=== PATIENT | male | born 1940 | race Two or more races ===

== ENCOUNTER 2019-01-31 03:07 | Emergency (ER) | payer MEDICARE ==
[~2019-01-31] VITALS: Ht 175.3 cm; Wt 55.8 kg
[2019-01-31] MEDS ORDERED: LET SOLN TOPICAL 8 ML UDC TP ONE ×2 (03:30→03:41)
--- NOTE | 2019-01-31 03:30 | NUR ---
biba for evaluation of facial edema and laceration on the nose bridge s/p fall. pt also w/ c/o neck pain. denied loosing conciousness. still w/ mod bleeding from the laceration. also noted w/ a buldging area on the forehead. vss. will cont to monitor,
--- NOTE | 2019-01-31 03:33 | NUR ---
slabber at the bed side
[2019-01-31 03:46] LABS: BASOPHILS % (AUTO) 0.3 % (0.0-2.0); EOSINOPHILS % (AUTO) 2.4 % (0.0-6.0); HEMATOCRIT 42 % (39-51); HEMOGLOBIN 14.1 g/dL (13.5-17.5); LYMPHOCYTES # (AUTO) 1.5 /CMM (0.8-4.8); LYMPHOCYTES % (AUTO) 24.1 % (20.0-44.0); MEAN CORPUSCULAR HGB CONC 34 g/dl (31.0-36.0); MEAN CORPUSCULAR VOLUME 94 fL (80-96); MONOCYTES # (AUTO) 0.5 /CMM (0.1-1.30); MONOCYTES % (AUTO) 8.4 % (2.0-12.0); NEUTROPHILS % (AUTO) 64.8 % (43.0-81.0); PLATELET COUNT (AUTO) 154 /CMM (150-450); RED BLOOD CELL COUNT(AUTO) 4.43 MIL/uL (4.5-6.0); WHITE BLOOD COUNT (AUTO) 6.2 K/uL (4.3-11.0)
[2019-01-31 03:55] LABS: CALCIUM, SERUM 9.5 mg/dL (8.5-10.1); CARBON DIOXIDE 26 mmol/L (21-32); CHLORIDE 102 mmol/L (98-107); CREATININE 1.5 mg/dL (0.6-1.3); GLUCOSE 125 mg/dL (74-106); POTASSIUM 4.3 mmol/L (3.5-5.1); SODIUM SERUM 138 mmol/L (136-145); UREA NITROGEN, BLOOD 28 mg/dL (7-18)
--- NOTE | 2019-01-31 04:55 | NUR ---
nose bridge skin tear was cleaned w/ NS. good skin care provided and steri- strips applied.
--- NOTE | 2019-01-31 05:03 | NUR ---
CALLED [facility] FOR TRANSPORTATION. ETA 0630. TRIP NUMBER [id number] Addendum: 01/31/19 at 0507 by JA ETA 0745. ATTEMPTED TO CALL [facility] FOR TRANSPORTATION. UNKNOWN ETA UNTIL AFTER 06
--- NOTE | 2019-01-31 05:41 | NUR ---
pt was assisted w/ the urinal. remained stable w/ no s/s of distress. no c/o pain or discomfort.
--- NOTE | 2019-01-31 06:19 | NUR ---
SPOKE WITH CHARGE NURSE OF [facility] AND INFORMED OF PT RETURNING BACK TO FACILITY
--- NOTE | 2019-01-31 07:00 | NUR ---
called [facility] to follow up w/ the transportation. ETA:[id number]
--- NOTE | 2019-01-31 08:00 | NUR ---
REPORT GIVEN TO EMT FOR PT TRANSFER.
[2019-01-31 08:41] VITALS: BP 149/95
== END 2019-01-31 08:45 ==
LOC: ER 03:07
DX: S02.2XXA Fracture of nasal bones, initial encounter for closed fracture (principal); S00.83XA Contusion of other part of head, initial encounter; M54.2 Cervicalgia; I10 Essential (primary) hypertension; W01.198A Fall on same level from slipping, tripping and stumbling with subsequent striking against other object, initial encounter; Y93.89 Activity, other specified; Y92.89 Other specified places as the place of occurrence of the external cause; Y99.8 Other external cause status
CPT/HCPCS: 36415; 70450; 70486; 72125; 80048; 85025; 99284; A6403 ×2

== ENCOUNTER 2021-03-22 21:04 | Inpatient (IN) | payer MEDICARE, OTHER ==
[~2021-03-22] VITALS: Ht 167.6 cm; Wt 41.7 kg
[2021-03-22] MEDS ORDERED: IV NS 0.9% 1,000 ML BAG IV ONE (21:30)
--- NOTE | 2021-03-22 21:45 | NUR ---
HERSON FROM [facility] TO ER BED 7. NOT IN ANY DISTRESS. BROUGHT IN FOR FAILURE TO THRIVE. PER REPORT, PT HAVE POOR ORAL INTAKE. HE IS ONLY EATING 10% OF HIS MEALS. WAS AT THE BEDSIDE FOR EVAL. ORDERS RECEIVED, NOTED AND CARRIED OUT. IV LINE ESTABLSHED ON THE JONNY WITH 18G, BLOOD DRAWN AND GIVEN TO PHLEB.
[2021-03-22 21:49] LABS: BASOPHILS % (AUTO) 0.6 % (0.0-2.0); EOSINOPHILS % (AUTO) 0.6 % (0.0-6.0); HEMATOCRIT 37 % (39-51); HEMOGLOBIN 12.4 g/dL (13.5-17.5); LYMPHOCYTES # (AUTO) 1.7 K/uL (0.8-4.8); LYMPHOCYTES % (AUTO) 25.1 % (20.0-44.0); MEAN CORPUSCULAR HGB CONC 33 g/dl (31.0-36.0); MEAN CORPUSCULAR VOLUME 91 fL (80-96); MONOCYTES # (AUTO) 0.8 K/uL (0.1-1.30); MONOCYTES % (AUTO) 11.4 % (2.0-12.0); NEUTROPHILS # (AUTO) 4.2 K/uL (1.8-8.9); NEUTROPHILS % (AUTO) 62.3 % (43.0-81.0); PLATELET COUNT (AUTO) 191 K/uL (150-450); RED BLOOD CELL COUNT(AUTO) 4.09 MIL/uL (4.5-6.0); WHITE BLOOD COUNT (AUTO) 6.7 K/uL (4.3-11.0)
[2021-03-22 21:58] LABS: CALCIUM, SERUM 8.7 mg/dL (8.5-10.1); CARBON DIOXIDE 27 mmol/L (21-32); CHLORIDE 100 mmol/L (98-107); CREATININE 0.8 mg/dL (0.6-1.3); GLUCOSE 112 mg/dL (74-106); POTASSIUM 3.8 mmol/L (3.5-5.1); SODIUM SERUM 135 mmol/L (136-145); UREA NITROGEN, BLOOD 24 mg/dL (7-18)
[2021-03-22 21:59] LABS: BILIRUBIN,URINE NEGATIVE (NEGATIVE); COLOR,URINE YELLOW (YELLOW); LEUKOCYTE ESTERASE ,URINE NEGATIVE (NEGATIVE); NITRITE, URINE NEGATIVE (NEGATIVE); PH,URINE 6.5 (5.0-8.0); PROTEIN,URINE NEGATIVE (NEGATIVE); UGLUCOSE NEGATIVE (NEGATIVE); UROBILINOGEN,URINE 0.2 EU/dL (0.2)
--- NOTE | 2021-03-22 22:01 | NUR ---
COVID SWABS DONE AND SENT TO LAB
[2021-03-22 22:07] LABS: ALANINE AMINOTRANSFERASE 18 U/L (12-78); ALBUMIN 3.1 g/dL (3.4-5.0); ALKALINE PHOSPHATASE 71 U/L (46-116); ASPARTATE AMINOTRANSFERASE 17 U/L (15-37); BILIRUBIN,DIRECT 0.2 mg/dL (0.0-0.2); BILIRUBIN,TOTAL 0.6 mg/dL (0.2-1.0); TOTAL PROTEIN, SERUM 6.8 g/dL (6.4-8.2)
--- NOTE | 2021-03-22 23:00 | NUR ---
[facility] SWAB COLLECTED AND SENT TO LAB. PATIENT'S BELONGINGS LIST DONE.
[2021-03-23] MEDS ORDERED: ACETAMINOPHEN 325 MG TABLET PO PRN
[2021-03-23] MEDS ORDERED: CEFTRIAXONE 1 G in IV D5W 50 ML IV SCH
[2021-03-23] MEDS ORDERED: ONDANSETRON HCL/PF 4 MG/2 ML VIAL IVP PRN
[2021-03-23] MEDS ORDERED: MAG HYDROX/AL HYDROX/SIMETH 30 ML UDC PO PRN
[2021-03-23] MEDS ORDERED: MAGNESIUM HYDROXIDE 30 ML UDC PO PRN
[2021-03-23] MEDS ORDERED: HYDROCODONE/APAP 5/325MG TABLET PO PRN
[2021-03-23] MEDS ORDERED: TEMAZEPAM 15 MG CAPSULE PO PRN
[2021-03-23] MEDS ORDERED: CEFTRIAXONE 1GM BAG (ER ONLY) 50 ML IV ONE (00:28)
[2021-03-23] MEDS: IV NS 0.9% 1,000 ML IV PRN ×2 (01:45→14:21)
--- NOTE | 2021-03-23 07:35 | NUR ---
[facility] [place] BED 116-1
--- NOTE | 2021-03-23 07:41 | NUR ---
REPORT GIVEN TO NURSE TERRY
--- NOTE | 2021-03-23 07:41 | NUR ---
BEDSIDE REPORT GIVEN BY LAURA RN. TRANSPORTED TO FLOOR IN STABLE CONDITION.
--- NOTE | 2021-03-23 07:48 | NUR ---
RN NOTES RECEIVED REPORT FROM ER, ON [place] TRANSFER TO BED SAFELY, WITH L UPPER ARM IVF OF 0.9 NS AT 75 ML/HR PATIENT AWAKE, NON VERBALL, ON ROOM AIR NO SOB AT THIS TIME, NO SIGNS OF PAIN AND DISCOMFORT AT THIS TIME, HOB ELEVATED, SIDERAILS UP FOR SAFETY, CALL LIGHT WITHIN REACH, WILL CONTINUE TO MONITOR
[2021-03-23 08:08] LABS: BASOPHILS % (AUTO) 0.3 % (0.0-2.0); EOSINOPHILS % (AUTO) 0.5 % (0.0-6.0); HEMATOCRIT 36 % (39-51); HEMOGLOBIN 11.8 g/dL (13.5-17.5); LYMPHOCYTES # (AUTO) 1.9 K/uL (0.8-4.8); LYMPHOCYTES % (AUTO) 28.7 % (20.0-44.0); MEAN CORPUSCULAR HGB CONC 33 g/dl (31.0-36.0); MEAN CORPUSCULAR VOLUME 92 fL (80-96); MONOCYTES # (AUTO) 0.6 K/uL (0.1-1.30); MONOCYTES % (AUTO) 9.2 % (2.0-12.0); NEUTROPHILS # (AUTO) 4.1 K/uL (1.8-8.9); NEUTROPHILS % (AUTO) 61.3 % (43.0-81.0); PLATELET COUNT (AUTO) 178 K/uL (150-450); RED BLOOD CELL COUNT(AUTO) 3.87 MIL/uL (4.5-6.0); WHITE BLOOD COUNT (AUTO) 6.6 K/uL (4.3-11.0)
[2021-03-23 08:26] LABS: CALCIUM, SERUM 8.3 mg/dL (8.5-10.1); CREATININE 0.8 mg/dL (0.6-1.3); MAGNESIUM 2.2 mg/dL (1.8-2.4); PHOSPHORUS 3.3 mg/dL (2.5-4.9); POTASSIUM 4.1 mmol/L (3.5-5.1)
[2021-03-23] MEDS: CLOPIDOGREL BISULFATE 75 MG TABLET PO SCH (08:28)
[2021-03-23] MEDS: CHOLECALCIFEROL (VITAMIN D 3) 400 UNIT TABLET PO SCH (08:29)
[2021-03-23] MEDS: DOCUSATE SODIUM LIQ 100 MG/10 ML UDC PO SCH (08:29)
[2021-03-23] MEDS: ASCORBIC ACID 500 MG TABLET PO SCH (08:29)
[2021-03-23] MEDS: PANTOPRAZOLE 40 MG TABLET.DR PO SCH (08:29)
[2021-03-23] MEDS: ENTACAPONE 200 MG TABLET PO SCH ×2 (08:29→16:05)
[2021-03-23] MEDS: ENOXAPARIN SODIUM 30 MG/0.3 ML DISP.SYRIN SQ SCH (08:32)
[2021-03-23] MEDS: MEMANTINE HCL 5 MG TABLET PO SCH ×2 (08:36→16:05)
[2021-03-23 08:37] LABS: THYROID STIMULATING HORMONE 1.135 uIU/mL (0.358-3.74)
[2021-03-23] MEDS ORDERED: CLOP75TA15 PO (09:00)
[2021-03-23] MEDS ORDERED: ACET-2605 PO (09:00)
[2021-03-23] MEDS ORDERED: TAMS-12 PO (09:00)
[2021-03-23] MEDS ORDERED: ENTA200T30 PO (09:00)
[2021-03-23] MEDS ORDERED: FERR325T23 PO (09:00)
[2021-03-23] MEDS ORDERED: CARB1TAB21 PO (09:00)
[2021-03-23] MEDS ORDERED: CHOL100062 PO (09:00)
[2021-03-23] MEDS ORDERED: DONE10TA44 PO (09:00)
[2021-03-23] MEDS ORDERED: AMIN30LI2 PO (09:00)
[2021-03-23] MEDS ORDERED: HYDR-4303 PO (09:00)
[2021-03-23] MEDS ORDERED: MEMA10TA PO (09:00)
[2021-03-23] MEDS ORDERED: OMEG1CAP PO (09:00)
[2021-03-23] MEDS ORDERED: MULT-447 PO (09:00)
[2021-03-23] MEDS ORDERED: ASCO-352 PO (09:00)
[2021-03-23] MEDS ORDERED: CRAN425C6 PO (09:00)
[2021-03-23] MEDS ORDERED: MELA5TAB PO (09:00)
[2021-03-23] MEDS ORDERED: BRIN8DRO2 EACHEYE (09:00)
[2021-03-23] MEDS ORDERED: ACET-868 PO (09:00)
[2021-03-23] MEDS ORDERED: CALC500T52 PO (09:00)
[2021-03-23] MEDS ORDERED: DOCU-141 PO (09:00)
[2021-03-23] MEDS: CARBIDOPA/LEVA CR 25/100MG 1 TAB.SA PO SCH ×2 (09:11→16:05)
[2021-03-23 12:00] VITALS: BP 145/74
--- NOTE | 2021-03-23 18:40 | NUR ---
RN NOTES PATIENT ATE 75% OF HIS LUNCH AND 100% ON HIS DINNER
--- NOTE | 2021-03-23 18:44 | NUR ---
RN CLOSING NOTE PATIENT IN BED AWAKE, RESPONSIVE TO VERBAL STIMULI, NOT IN ACUTE DISTRESS NOTED, NO SIGN AND SYMPTOMS OF PAIN AND DISCOMFORT AT THIS TIME. IV ACCESS AT JONNY G 18 PATENT FLUSHES WELL, WITH IVF OF PNS 1L 75CC/HR, HOB ELEVATED, SAFETY PRECAUTION IN PLACE,BED IN LOW POSITION AND LOCKED, SIDERAILS UP FOR SAFETY, CALL LIGHT WITHIN REACH, ALL NEEDS ATTENDED PROMPTLY. ENDORSED
--- NOTE | 2021-03-23 19:40 | NUR ---
MS RN NOTES RECEIVED ON BED SOUND ASLEEP,BREATHING REGULAR,NOT IN ANY FORM OF DISTRESS,IVF NS AT 75ML/HR RATE INFUSING WELL ON JONNY SALINE LOCK,VIA IV PUMP.SITE PATENT.INCONTINENT OF B/B,FALL PRECAUTION OBSERVED,BED ALARM,BED ON LOWEST POSITION AND LOCKED,CALL LIGHT IN REACH,NEEDS ANTICIPATED.
[2021-03-23 20:00] VITALS: BP 142/73
[2021-03-23] MEDS: DONEPEZIL 5 MG TABLET PO SCH (21:24)
[2021-03-23] MEDS: TAMSULOSIN 0.4 MG CAP.SR.24H PO SCH (21:24)
[2021-03-23] MEDS: FERROUS SULFATE (325 MG) 325 MG/TAB TABLET PO SCH (21:24)
[2021-03-23] MEDS: CEFTRIAXONE 1 G in IV D5W 50 ML IV SCH (23:42)
--- NOTE | 2021-03-23 23:45 | NUR ---
MS RN NOTES STARTED ON ROCEPHIN 1GM IVPB
[2021-03-24 04:00] VITALS: BP 151/70
[2021-03-24] MEDS: IV NS 0.9% 1,000 ML IV PRN ×2 (04:33→19:05)
--- NOTE | 2021-03-24 06:22 | NUR ---
MS RN NOTES SLEPT WELL AT NIGHT,ABLE TO COMMUNICATE.IVF IN PROGRESS.IN NO ACUTE DISTRESS.WILL ENDORSE TO DAY NURSE FOR GIFTY.
--- NOTE | 2021-03-24 07:28 | NUR ---
RN OPENING NOTE Pt is awake, alert and oriented x 1 name, able to answer simple questions, HOB on semi-fowlers position, IV NS @75cc/hr with no s/sx of infiltration on left arm. Safety precautions implemented, bed locked in lowest position, call light within reach.
[2021-03-24] MEDS: MEMANTINE HCL 5 MG TABLET PO SCH ×2 (08:38→16:14)
[2021-03-24] MEDS: ENTACAPONE 200 MG TABLET PO SCH ×2 (08:38→16:14)
[2021-03-24] MEDS: ENOXAPARIN SODIUM 30 MG/0.3 ML DISP.SYRIN SQ SCH (08:38)
[2021-03-24] MEDS: CLOPIDOGREL BISULFATE 75 MG TABLET PO SCH (08:39)
[2021-03-24] MEDS: CHOLECALCIFEROL (VITAMIN D 3) 400 UNIT TABLET PO SCH (08:39)
[2021-03-24] MEDS: CARBIDOPA/LEVA CR 25/100MG 1 TAB.SA PO SCH ×2 (08:39→16:14)
[2021-03-24] MEDS: ASCORBIC ACID 500 MG TABLET PO SCH (08:39)
[2021-03-24] MEDS: DOCUSATE SODIUM LIQ 100 MG/10 ML UDC PO SCH (08:39)
[2021-03-24] MEDS: PANTOPRAZOLE 40 MG TABLET.DR PO SCH (08:42)
[2021-03-24 12:00] VITALS: BP 145/70
[2021-03-24] MEDS: GUAIFENESIN LA 600 MG TABLET.SA PO SCH ×2 (12:26→21:15)
--- NOTE | 2021-03-24 18:18 | NUR ---
RN NOTE AMOUNT EATEN Breakfast eaten amount 50% Lunch eaten amount 50% Dinner eaten amount 75% Patient is total assist in feeding.
--- NOTE | 2021-03-24 18:58 | NUR ---
RN CLOSING NOTES Pt is A/O x 1, no respiratory distress, no SOB. On IVF NS hydration 75cc/hr on left arm with no s/sx of infiltration. Head of bed elevated on semi fowlers position. Safety precautions implemented, bed locked in lowest position, call light within reach.
--- NOTE | 2021-03-24 19:30 | NUR ---
RN OPENING NOTES: RECEIVED PT A/OX1 IN BED IN NO S/SX OF ACUTE DISTRESS AT THIS TIME. NO SOB NOTED. PATIENT'S BREATHING IS EVEN AND UNLABORED. PATIENT IS ON ROOM AIR; TOLERATING WELL. CURRENTLY ON MS STATUS. PATIENT ON SOFT DIET; TOLERATES WELL. NOTED IV SITE ON L UA MIDLINE #18; PATENT, INTACT AND FLUSHING WELL; NO S/S OF INFECTION OR INFILTRATION. WITH IV FLUID RUNNING ORDERED. SAFETY MEASURES HAVE BEEN PROVIDED AND IMPLEMENTED. PATIENT BED ALARM IS ON. HEAD OF BED ELEVATED. BED IS LOCKED, IN LOWEST POSITION AND SIDE RAILS UP. CALL LIGHT WITHIN REACH OF THE PATIENT. APPLICABLE ISOLATION PRECAUTIONS IN PLACE. WILL CONTINUE TO MONITOR AND REASSESS FOR ANY CHANGES AND WILL CARRY OUT ANY ONGOING AND ACTIVE MD ORDER.
[2021-03-24 20:00] VITALS: BP 111/69
[2021-03-24] MEDS: TAMSULOSIN 0.4 MG CAP.SR.24H PO SCH (21:15)
[2021-03-24] MEDS: DONEPEZIL 5 MG TABLET PO SCH (21:15)
[2021-03-24] MEDS: FERROUS SULFATE (325 MG) 325 MG/TAB TABLET PO SCH (21:15)
[2021-03-25] MEDS: CEFTRIAXONE 1 G in IV D5W 50 ML IV SCH (00:01)
[2021-03-25 04:00] VITALS: BP 147/81
--- NOTE | 2021-03-25 04:00 | NUR ---
RN NOTES NO NOTED CHANGES IN PATIENT CONDITION AT THIS TIME; PATIENT VITALS STABLE, NO SIGNS OF ACUTE RESPIRATORY DISTRESS. AM PATIENT CARE RENDERED. WOOD MECHANIST MADE AWARE. WILL CONTINUE TO MONITOR AND REASSESS FOR ANY CHANGES THROUGHOUT THE SHIFT.
[2021-03-25 06:24] LABS: BASOPHILS % (AUTO) 0.2 % (0.0-2.0); EOSINOPHILS % (AUTO) 0.7 % (0.0-6.0); HEMATOCRIT 32 % (39-51); HEMOGLOBIN 10.9 g/dL (13.5-17.5); LYMPHOCYTES # (AUTO) 1.7 K/uL (0.8-4.8); MEAN CORPUSCULAR HGB CONC 34 g/dl (31.0-36.0); MEAN CORPUSCULAR VOLUME 91 fL (80-96); MONOCYTES # (AUTO) 0.7 K/uL (0.1-1.30); MONOCYTES % (AUTO) 9.6 % (2.0-12.0); NEUTROPHILS # (AUTO) 4.5 K/uL (1.8-8.9); NEUTROPHILS % (AUTO) 64.5 % (43.0-81.0); PLATELET COUNT (AUTO) 152 K/uL (150-450); RED BLOOD CELL COUNT(AUTO) 3.48 MIL/uL (4.5-6.0); WHITE BLOOD COUNT (AUTO) 6.9 K/uL (4.3-11.0)
[2021-03-25 07:06] LABS: CREATININE 0.6 mg/dL (0.6-1.3); POTASSIUM 3.6 mmol/L (3.5-5.1)
--- NOTE | 2021-03-25 07:32 | NUR ---
RN OPENING NOTE Pt is asleep, arousable to stimuli, no respiratory distress, no SOB. On IVF running NS 75cc/hr with no s/sx of infiltration. HOB on semi-fowlers position, safety precautions implemented, bed locked in lowest position, call light within reach.
[2021-03-25] MEDS: CLOPIDOGREL BISULFATE 75 MG TABLET PO SCH (08:06)
[2021-03-25] MEDS: CHOLECALCIFEROL (VITAMIN D 3) 400 UNIT TABLET PO SCH (08:06)
[2021-03-25] MEDS: GUAIFENESIN LA 600 MG TABLET.SA PO SCH ×2 (08:06→21:00)
[2021-03-25] MEDS: CARBIDOPA/LEVA CR 25/100MG 1 TAB.SA PO SCH ×2 (08:06→16:40)
[2021-03-25] MEDS: ENTACAPONE 200 MG TABLET PO SCH ×2 (08:07→16:40)
[2021-03-25] MEDS: MEMANTINE HCL 5 MG TABLET PO SCH ×2 (08:07→16:40)
[2021-03-25] MEDS: PANTOPRAZOLE 40 MG TABLET.DR PO SCH (08:07)
[2021-03-25] MEDS: DOCUSATE SODIUM LIQ 100 MG/10 ML UDC PO SCH (08:08)
[2021-03-25] MEDS: ASCORBIC ACID 500 MG TABLET PO SCH (08:08)
[2021-03-25] MEDS: ENOXAPARIN SODIUM 30 MG/0.3 ML DISP.SYRIN SQ SCH (08:09)
[2021-03-25] MEDS: IV NS 0.9% 1,000 ML IV PRN (10:58)
[2021-03-25 12:00] VITALS: BP 139/78
[2021-03-25] MEDS: ENSURE ENLIVE 237 ML LIQUID (VANILLA) PO SCH ×2 (12:08→16:41)
--- NOTE | 2021-03-25 18:00 | NUR ---
RN NOTE Breakfast 50% amount eaten Lunch 25% amount eaten Dinner 0% amount eaten Patient is total assist. Seen by ST with recomendations for Mechanical soft diet and nectar thick liquids.
--- NOTE | 2021-03-25 18:53 | NUR ---
RN CLOSING NOTES Patient is A/O X 1-answers to simple questions. No respiratory distress, no SOB. Incontinent of B/B. AM/PM care rendered, repositioned accordingly. On IVF NS @75cc/hr with no s/sx of infiltration. Safety precautions implemented, bed locked in lowest position, call light within reach.
--- NOTE | 2021-03-25 19:30 | NUR ---
RN OPENING NOTE PATIENT IN BED EYES CLOSED, EASILY AROUSED. PATIENT IS A/O X 1 AT THIS TIME. PATIENT IS ON RA, TOLERATING WELL. BREATHING EVEN AND UNLABORED. PATIENT HAS A JONNY MIDLINE WITH NS @ 75 ML/HR. SAFETY MEASURES IN PLACE: BED LOCKED AND IN LOWEST POSITION, CALL LIGHT WITHIN REACH, SIDE RAILS UP. WILL MONITOR PATIENT CLOSELY.
[2021-03-25 20:00] VITALS: BP 157/80
[2021-03-25] MEDS: DONEPEZIL 5 MG TABLET PO SCH (21:50)
[2021-03-25] MEDS: FERROUS SULFATE (325 MG) 325 MG/TAB TABLET PO SCH (21:50)
[2021-03-25] MEDS: TAMSULOSIN 0.4 MG CAP.SR.24H PO SCH (21:50)
--- NOTE | 2021-03-25 21:50 | NUR ---
RN NOTE MUCINEX SHOULD NOT BE CRUSHED, PATIENT'S DIET MECH SOFT AND UNABLE TO TAKE WHOLE PILL. PHARMACY STATES THERE'S A LIQUID FORM. NOT ADMINISTERED D/T ALTERNATIVE FORM NOT AVAILABLE PER NURSING STRATEGIC PLANNING CONSULTANT RIVAS. PATIENT REFUSED ALL 2200 MEDICATIONS AND STATES HE JUST WANTS TO SLEEP "NO MEDICATION". RISK AND BENEFITS EXPLAINED TO PATIENT.
[2021-03-26] MEDS: CEFTRIAXONE 1 G in IV D5W 50 ML IV SCH (00:02)
[2021-03-26] MEDS: IV NS 0.9% 1,000 ML IV PRN (00:06)
[2021-03-26 04:00] VITALS: BP 108/66
[2021-03-26 06:33] LABS: BASOPHILS % (AUTO) 0.3 % (0.0-2.0); EOSINOPHILS % (AUTO) 0.9 % (0.0-6.0); HEMATOCRIT 31 % (39-51); HEMOGLOBIN 10.7 g/dL (13.5-17.5); LYMPHOCYTES # (AUTO) 1.6 K/uL (0.8-4.8); LYMPHOCYTES % (AUTO) 27.9 % (20.0-44.0); MEAN CORPUSCULAR HGB CONC 34 g/dl (31.0-36.0); MEAN CORPUSCULAR VOLUME 91 fL (80-96); MONOCYTES # (AUTO) 0.5 K/uL (0.1-1.30); MONOCYTES % (AUTO) 8.8 % (2.0-12.0); NEUTROPHILS # (AUTO) 3.5 K/uL (1.8-8.9); NEUTROPHILS % (AUTO) 62.1 % (43.0-81.0); PLATELET COUNT (AUTO) 149 K/uL (150-450); RED BLOOD CELL COUNT(AUTO) 3.45 MIL/uL (4.5-6.0); WHITE BLOOD COUNT (AUTO) 5.6 K/uL (4.3-11.0)
[2021-03-26 07:03] LABS: ALBUMIN 2.4 g/dL (3.4-5.0); BILIRUBIN,TOTAL 0.4 mg/dL (0.2-1.0); CALCIUM, SERUM 8.2 mg/dL (8.5-10.1); CREATININE 0.6 mg/dL (0.6-1.3); MAGNESIUM 2.2 mg/dL (1.8-2.4); POTASSIUM 3.6 mmol/L (3.5-5.1); TOTAL PROTEIN, SERUM 5.9 g/dL (6.4-8.2)
--- NOTE | 2021-03-26 07:29 | NUR ---
RN CLOSING NOTE PATIENT IN BED SLEEPING, EASILY AROUSED. A/O X 1. PATIENT DID NOT HAVE ANY INTAKE DURING THE SHIFT, OFFERED FLUIDS NAD SNACKS SEVERAL TIMES, REFUSED. ALL ORDERS CARRIED OUT. ALL NEEDS MET AND ATTENDED. ENDORSED TO DAY SHIFT NURSE FOR GIFTY.
[2021-03-26] MEDS: PANTOPRAZOLE 40 MG TABLET.DR PO SCH (07:48)
--- NOTE | 2021-03-26 08:00 | NUR ---
NURSE OPENING NOTE. RECEIVE REPORT FROM OUT GOING NOTE. PATIENT SHOWS SIGNS OF FAILURE TO THRIVE. A/O X1. PATIENT IS NOT CONSUMING ADEQUATE NUTRITIONAL INTAKE. WILL MONITOR CALORIC INTAKE. ALL SAFETY MEASURES IN PLACE. BED IN LOWEST POSITION WITH HEAD OF THE BED ELEVATED AT 30 DEGREE. 3 SIDE RAIL UP. BED IS LOCK. BED ALARM ON. CALL LIGHT WITHIN REACH. WILL CONTINUE TO MONITOR THROUGHOUT SHIFT.
[2021-03-26] MEDS: DOCUSATE SODIUM LIQ 100 MG/10 ML UDC PO SCH (09:40)
[2021-03-26] MEDS: CARBIDOPA/LEVA CR 25/100MG 1 TAB.SA PO SCH (09:41)
[2021-03-26] MEDS: MEMANTINE HCL 5 MG TABLET PO SCH (09:41)
[2021-03-26] MEDS: ENTACAPONE 200 MG TABLET PO SCH (09:41)
[2021-03-26] MEDS: CHOLECALCIFEROL (VITAMIN D 3) 400 UNIT TABLET PO SCH (09:41)
[2021-03-26] MEDS: GUAIFENESIN LA 600 MG TABLET.SA PO SCH (09:41)
[2021-03-26] MEDS: ASCORBIC ACID 500 MG TABLET PO SCH (09:41)
[2021-03-26] MEDS: CLOPIDOGREL BISULFATE 75 MG TABLET PO SCH (09:41)
[2021-03-26] MEDS: ENOXAPARIN SODIUM 30 MG/0.3 ML DISP.SYRIN SQ SCH (09:44)
[2021-03-26] MEDS: ENSURE ENLIVE 237 ML LIQUID (VANILLA) PO SCH (09:45)
[2021-03-26 12:00] VITALS: BP 132/74
== END 2021-03-26 15:30 | DRG 640 ==
LOC: ER 21:16 → MEDSG1 03-23 07:43
PROVIDERS: ADMIT Nurse Practitioner Acute Care
DX: R62.7 Adult failure to thrive (principal); E43 Unspecified severe protein-calorie malnutrition; Z68.1 Body mass index [BMI] 19.9 or less, adult; D68.59 Other primary thrombophilia; J32.0 Chronic maxillary sinusitis; I10 Essential (primary) hypertension; G20 Parkinson's disease; F02.80 Dementia in other diseases classified elsewhere, unspecified severity, without behavioral disturbance, psychotic disturbance, mood disturbance, and anxiety; Z74.01 Bed confinement status; I25.10 Atherosclerotic heart disease of native coronary artery without angina pectoris; D63.8 Anemia in other chronic diseases classified elsewhere; Z91.81 History of falling; M19.90 Unspecified osteoarthritis, unspecified site; M62.50 Muscle wasting and atrophy, not elsewhere classified, unspecified site; M62.40 Contracture of muscle, unspecified site; F32.A Depression, unspecified; Z74.09 Other reduced mobility; F41.9 Anxiety disorder, unspecified; R79.89 Other specified abnormal findings of blood chemistry; H74.8X2 Other specified disorders of left middle ear and mastoid
CPT/HCPCS: 36415; 70450-TC; 71045-TC; 80048-TC; 80053-TC; 80061-TC; 80076-TC; 83605-TC; 83735-TC; 84100-TC; 84443-TC; 84484-TC; 85025-TC; 85730-TC; 87040-TC; 87081-TC; 92526; 92611-TC; C9803; G0378; J0696; J1650; J7030; J7060; U0003

== ENCOUNTER 2021-11-18 17:41 | Inpatient (IN) | payer MEDICARE, OTHER ==
[~2021-11-18] VITALS: Ht 175.3 cm; Wt 39.9 kg
[~2021-11-18 17:41] MED LIST: ACET-2605 PO; ACET-868 PO; AMIN30LI2 PO; ASCO-352 PO; BRIN8DRO2 EACHEYE; CALC500T52 PO; CARB1TAB21 PO; CHOL100062 PO; CLOP75TA15 PO; CRAN425C6 PO; DOCU-141 PO; DONE10TA44 PO; ENTA200T30 PO; FERR325T23 PO; HYDR-4303 PO; MELA5TAB PO; MEMA10TA PO; MULT-447 PO; OMEG1CAP PO; TAMS-12 PO
--- NOTE | 2021-11-18 17:53 | NUR ---
BIBPA FOR GT PLACEMENT DUE TO POOR PO INTAKE. PT VITALS ARE WITHIN NORMAL LIMITS, NO RESP DISTRESS ON ROOM AIR.
--- NOTE | 2021-11-18 17:55 | NUR ---
BIBPA FOR GT PLACEMENT DUE TO POOR PO INTAKE. THE PATIENT IS ATTACHED TO THE MONITOR. WARM BLANKET PROVIDED FOR COMFORT. WILL CONTINUE TO MONITOR THE PATIENT.
--- NOTE | 2021-11-18 18:21 | NUR ---
IV ALFRED R FA 20G. LABS DRAWN AND OCLLECTED AT BEDSIDE.
[2021-11-18] MEDS ORDERED: CALC1TAB30 PO (18:26)
[2021-11-18] MEDS ORDERED: CRAN3875 PO (18:26)
[2021-11-18] MEDS ORDERED: ACET-2605 PO (18:26)
[2021-11-18] MEDS ORDERED: MAGN400O6 PO (18:26)
[2021-11-18] MEDS ORDERED: PANT40TA2 PO (18:26)
--- NOTE | 2021-11-18 18:36 | NUR ---
COVID TEST COLLECTED AND SENT
--- NOTE | 2021-11-18 19:05 | NUR ---
Rodolfo crandall in [facility] - 11/18/21 at 1928 by ONI RECEIVED REPORT FROM UATUMN SHAFFER GIFTY
--- NOTE | 2021-11-18 19:05 | NUR ---
RECEIVED REPORT FROM AUTUMN WOLF FOR GIFTY
[2021-11-18 19:30] LABS: CALCIUM, SERUM 8.8 mg/dL (8.5-10.1); CREATININE 0.9 mg/dL (0.6-1.3); POTASSIUM 4.1 mmol/L (3.5-5.1)
--- NOTE | 2021-11-18 19:30 | NUR ---
PT AAOX0, CONNECTED TO MONITOR. VSS. WILL CONTINUE TO MONITOR.
[2021-11-18 19:59] LABS: BASOPHILS % (AUTO) 0.4 % (0.0-2.0); HEMATOCRIT 36 % (39-51); HEMOGLOBIN 12.3 g/dL (13.5-17.5); LYMPHOCYTES # (AUTO) 2.2 K/uL (0.8-4.8); MEAN CORPUSCULAR HGB CONC 34 g/dl (31.0-36.0); MEAN CORPUSCULAR VOLUME 91 fL (80-96); MONOCYTES # (AUTO) 0.5 K/uL (0.1-1.30); MONOCYTES % (AUTO) 8.9 % (2.0-12.0); NEUTROPHILS # (AUTO) 2.9 K/uL (1.8-8.9); NEUTROPHILS % (AUTO) 50.7 % (43.0-81.0); PLATELET COUNT (AUTO) 168 K/uL (150-450); RED BLOOD CELL COUNT(AUTO) 3.98 MIL/uL (4.5-6.0); WHITE BLOOD COUNT (AUTO) 5.8 K/uL (4.3-11.0)
--- NOTE | 2021-11-18 20:19 | NUR ---
CALLED EPIC TO PAGE PANEL
--- NOTE | 2021-11-18 20:25 | NUR ---
[facility] SWAB COLLECTED AND SENT TO LAB. PATIENT'S BELONGINGS LIST DONE.
--- NOTE | 2021-11-18 21:03 | NUR ---
REPORT GIVEN TO JASBIR WOLF FOR GIFTY
--- NOTE | 2021-11-18 21:15 | NUR ---
RN NOTES PT RECEIVED FROM ER TWO PERSONEL ASSISTED WITH BRANDON.ALERT ORIENTED X2 WITH CONFUSION. PT RA NUBIA WELL NO SIGN SOB/DISTRESS NOTED,VITAL SIGN TAKEN AND RECORDED.NO COMPLAIN OF PAIN/DISCOMFORT AT THIS TIME.IV ACCESS RFA #18G.ALL NEEDS ATTENDED NUBIA WELL.CALL LIGHT WITHIN REACH.SAFETY MEASURE IN PLACE.BED LOCKED AND LOW POSITION.CONTINUE TO MONITOR.
[2021-11-18] MEDS ORDERED: Z GUARD REMEDY 4 OZ OINT TP PRN (23:00)
[2021-11-18] MEDS ORDERED: IV NS 0.9% 1,000 ML IV PRN (23:00)
[2021-11-18] MEDS ORDERED: MORPHINE SULFATE INJ 2 MG/ML DISP.SYRIN IV PRN (23:00)
[2021-11-18] MEDS ORDERED: ACETAMINOPHEN 325 MG TABLET PO PRN (23:00)
[2021-11-18] MEDS ORDERED: ONDANSETRON HCL/PF 4 MG/2 ML VIAL IVP PRN (23:00)
[2021-11-19 06:10] LABS: BASOPHILS % (AUTO) 0.3 % (0.0-2.0); EOSINOPHILS % (AUTO) 1.1 % (0.0-6.0); HEMATOCRIT 37 % (39-51); HEMOGLOBIN 12.7 g/dL (13.5-17.5); LYMPHOCYTES % (AUTO) 50.7 % (20.0-44.0); MEAN CORPUSCULAR HGB CONC 34 g/dl (31.0-36.0); MEAN CORPUSCULAR VOLUME 90 fL (80-96); MONOCYTES # (AUTO) 0.2 K/uL (0.1-1.30); MONOCYTES % (AUTO) 5.7 % (2.0-12.0); NEUTROPHILS # (AUTO) 1.7 K/uL (1.8-8.9); NEUTROPHILS % (AUTO) 42.2 % (43.0-81.0); PLATELET COUNT (AUTO) 156 K/uL (150-450); RED BLOOD CELL COUNT(AUTO) 4.13 MIL/uL (4.5-6.0)
--- NOTE | 2021-11-19 06:36 | NUR ---
RN CLOSING NOTES PT IN BED SLEEPING BUT EASY TO AROUSED ALERT ORIENTED X2 WITH CONFUSION. PT RA NUBIA WELL NO SIGN SOB/DISTRESS NOTED,PT WAS NPO FOR G TUBE PLACEMENT TODAY.NO COMPLAIN OF PAIN/DISCOMFORT AT THIS TIME.IV ACCESS RFA #18G 0.9 NS @75CC/HR RUNNING NUBIA WELL..ALL NEEDS ATTENDED NUBIA WELL.CALL LIGHT WITHIN REACH.SAFETY MEASURE IN PLACE.BED LOCKED AND LOW POSITION.WILL ENDORSED TO NEXT SHIFT.
[2021-11-19] MEDS: PANTOPRAZOLE 40 MG TABLET.DR PO SCH (07:30)
[2021-11-19 07:40] LABS: ALANINE AMINOTRANSFERASE 12 U/L (12-78); ALBUMIN 3.3 g/dL (3.4-5.0); ALKALINE PHOSPHATASE 73 U/L (46-116); ASPARTATE AMINOTRANSFERASE 13 U/L (15-37); BILIRUBIN,TOTAL 0.4 mg/dL (0.2-1.0); CARBON DIOXIDE 26 mmol/L (21-32); CHLORIDE 104 mmol/L (98-107); CREATININE 0.8 mg/dL (0.6-1.3); GLUCOSE 100 mg/dL (74-106); PHOSPHORUS 2.9 mg/dL (2.5-4.9); POTASSIUM 3.9 mmol/L (3.5-5.1); SODIUM SERUM 137 mmol/L (136-145); TOTAL PROTEIN, SERUM 6.9 g/dL (6.4-8.2); UREA NITROGEN, BLOOD 28 mg/dL (7-18)
--- NOTE | 2021-11-19 07:48 | NUR ---
MS RN NOTE PATIENT FOR G-TUBE PLACEMENT, STILL TO SECURE CONSENT. PATIENT IS CONFUSED, CALLED PATIENT'S SON NIK RAI [phone] BUT NO ANSWER. LEFT VOICEMAIL. TRIED TO CALL RECOVERY, BUT NO ANSWER. WILL CONTINUE TO MONITOR.
[2021-11-19 08:00] VITALS: BP 146/89
[2021-11-19 08:04] LABS: CALCIUM, SERUM 9.2 mg/dL (8.5-10.1)
--- NOTE | 2021-11-19 08:25 | NUR ---
MS RN NOTE SECURED CONSENT FOR PROCEDURE FROM DAUGHTER STEVEN. COMFORT MEASURES PROVIDED.
[2021-11-19] MEDS: ENTACAPONE 200 MG TABLET PO SCH ×2 (09:00→17:32)
[2021-11-19] MEDS: DOCUSATE SODIUM LIQ 100 MG/10 ML UDC PO SCH ×2 (09:00→17:32)
[2021-11-19] MEDS: FERROUS SULFATE (325 MG) 325 MG/TAB TABLET PO SCH (09:00)
[2021-11-19] MEDS: MEMANTINE HCL 5 MG TABLET PO SCH ×2 (09:00→17:33)
[2021-11-19] MEDS: CARBIDOPA/LEVODOPA 25/100 MG 1 UDTAB PO SCH ×2 (09:00→17:32)
[2021-11-19] MEDS: POLYETHYLENE GLYCOL 3350 17 GM POWD.PACK PO SCH (09:00)
--- NOTE | 2021-11-19 15:00 | NUR ---
MS RN NOTE SPOKE WITH DR. ESTRELLA. SURGERY MIGHT HAPPEN TOMORROW. KEEP PATIENT NPO AND HAVE PATIENT EVALUATED BY SPEECH THERAPIST. ORDERS MADE AND CARRIED OUT. NOTIFIED DR. RICE OF MD ORDER, WITH ORDER TO START PATOIENT ON D5 CONTAINING IVF AT 80 ML/HR. WILL CONTINUE TO MONITOR PATIENT.
[2021-11-19 16:00] VITALS: BP 154/90
[2021-11-19] MEDS: IV D5/0.45 NACL 1,000 ML IV PRN (16:14)
--- NOTE | 2021-11-19 19:37 | NUR ---
RN OPENING NOTES PT IN BED SLEEPING BUT EASY TO AROUSED ALERT ORIENTED X1 WITH CONFUSION. PT RA NUBIA WELL NO SIGN SOB/DISTRESS NOTED,NO COMPLAIN OF PAIN/DISCOMFORT AT THIS TIME.IV ACCESS RFA #18G D5 1/2 NS @ 80CC/HR RUNNING NUBIA WELL..CALL LIGHT WITHIN REACH.SAFETY MEASURE IN PLACE.BED LOCKED AND LOW POSITION.WILL CONTINUE TO MONITOR.
--- NOTE | 2021-11-19 19:49 | NUR ---
RN CLOSING NOTES PT IN BED SLEEPING BUT EASY TO AROUSED ALERT ORIENTED X2 WITH CONFUSION. NO SIGN OF SOB/DISTRESS NOTED, PT WAS NPO FOR G TUBE PLACEMENT RESCHEDULED FOR 11/20/2021. NO COMPLAIN OF PAIN/DISCOMFORT AT THIS TIME.IV ACCESS RFA #18G 0.9 D5W @75CC/HR RUNNING WELL.ALL NEEDS ATTENDED.CALL LIGHT WITHIN REACH SAFETY MEASURE IN PLACE.BED LOCKED AND LOW POSITION.WILL ENDORSED TO NEXT SHIFT.
[2021-11-19 20:00] VITALS: BP 166/100
[2021-11-19] MEDS: HEPARIN SODIUM, PORCINE 5000 UNITS/1 ML VIAL SQ SCH (20:07)
[2021-11-19] MEDS: TAMSULOSIN 0.4 MG CAP.SR.24H PO SCH (21:28)
[2021-11-19] MEDS: DONEPEZIL 5 MG TABLET PO SCH (21:28)
[2021-11-20] MEDS: IV D5/0.45 NACL 1,000 ML IV PRN (06:00)
--- NOTE | 2021-11-20 06:34 | NUR ---
RN CLOSING NOTES PT IN BED SLEEPING BUT EASY TO AROUSED ALERT ORIENTED X2 WITH CONFUSION. PT RA NUBIA WELL NO SIGN SOB/DISTRESS NOTED,PT WAS NPO FOR G TUBE PLACEMENT TODAY.NO COMPLAIN OF PAIN/DISCOMFORT AT THIS TIME.IV ACCESS RFA #18G D5 1/2 NS @80CC/HR.ALL NEEDS ATTENDED NUBIA WELL.CALL LIGHT WITHIN REACH.SAFETY MEASURE IN PLACE.BED LOCKED AND LOW POSITION.WILL ENDORSED TO NEXT SHIFT.
[2021-11-20] MEDS: PANTOPRAZOLE 40 MG TABLET.DR PO SCH (07:30)
--- NOTE | 2021-11-20 07:49 | NUR ---
RN OPENING NOTE PATIENT RECEIVED IN BED, AO TO PERSON. ABLE TO RESPONDS ALL STIMULI. IN NO ACUTE DISTRESS NOTED. RESPIRATORY EVEN AND UNLABORED ON ROOM AIR. SKIN IS WARM TO TOUCH, KEEP CLEAN/DRY. KEPT ELEVATED HOB FOR ENSURE AIRWAY AND ASPIRATION PRECAUTION, ALSO LOWEST POSITION OF THE BED, S/R UP X 3, BED ALARM IS ON AT ALL THE TIMES. ALL SAFETY PRECAUTION APPLIED. CALL LIGHT WITHIN REACH, WILL CONTINUE TO MONITOR.
[2021-11-20 08:00] VITALS: BP 126/59
[2021-11-20] MEDS: DOCUSATE SODIUM LIQ 100 MG/10 ML UDC PO SCH ×2 (09:00→17:00)
[2021-11-20] MEDS: POLYETHYLENE GLYCOL 3350 17 GM POWD.PACK PO SCH (09:00)
[2021-11-20] MEDS: MEMANTINE HCL 5 MG TABLET PO SCH ×2 (09:00→17:00)
[2021-11-20] MEDS: HEPARIN SODIUM, PORCINE 5000 UNITS/1 ML VIAL SQ SCH ×2 (09:00→21:00)
[2021-11-20] MEDS: ENTACAPONE 200 MG TABLET PO SCH ×2 (09:00→17:00)
[2021-11-20] MEDS: FERROUS SULFATE (325 MG) 325 MG/TAB TABLET PO SCH (09:00)
[2021-11-20] MEDS: CARBIDOPA/LEVODOPA 25/100 MG 1 UDTAB PO SCH ×2 (09:00→17:00)
--- NOTE | 2021-11-20 09:23 | NUR ---
PATIENT SCHEDULED ON PEG PROCEDURE, HELD LOVENOX, ALSO UNABLE TO SALLOW ALL PO MEDS AND HELD ALL PO MEDS.
[2021-11-20] MEDS ORDERED: ANESTHESIA TRAY IN PYXIS 1 EA TRAY MC ONE (09:56)
[2021-11-20 16:36] VITALS: BP 117/74
--- NOTE | 2021-11-20 18:00 | NUR ---
RN CLOSE NOTE PATIENT IN BED. IN NO ACUTE DISTRESS OBSERVED. RESPIRATION EVEN AND UNLABORED ON ROOM AIR. SKIN IS WARM TO TOUCH KEEP CLEAN/DRY. KEPT ELEVATED HOB FOR ASPIRATION PRECAUTION AND ENSURE AIR WAY, ALSO LOWEST POSITION OF THE BED FOR SAFETY. CALL LIGHT WITHIN REACH, WILL ENDORSE TO LACQUER SIZER. NPO SIGN REPOSTED AT BED SIDE.
--- NOTE | 2021-11-20 19:43 | NUR ---
MS RN NOTES RECEIVED ON BED SLEEPING,AROUSABLE TO VERBAL STIMULI,A/O X1,WITH IVF INFUSING WELL AT 80ML/HR RATE,SITE PATENT ON RFA,FOR PEG PLACEMENT,KEPT NPO,WILL CONTINUE TO MONITOR STATUS.
[2021-11-20 20:00] VITALS: BP_SYST 125; BP_SYST 129; BP_DIAS 75
[2021-11-20] MEDS: TAMSULOSIN 0.4 MG CAP.SR.24H PO SCH (22:00)
[2021-11-20] MEDS: DONEPEZIL 5 MG TABLET PO SCH (22:00)
[2021-11-21] VITALS (7 sets, daily range): BP systolic 120–169; BP diastolic 71–90
[2021-11-21] MEDS: IV D5/0.45 NACL 1,000 ML IV PRN ×2 (03:15→17:22)
--- NOTE | 2021-11-21 06:16 | NUR ---
MS RN NOTES NO SIGNIFICANT CHANGE IN STATUS,KEPT NPO FOR PERG PLACEMENT TODAY BY DR ESTRELLA,IVF IN PROGRESS.IN NO ACUTE DISTRESS.
[2021-11-21] MEDS: PANTOPRAZOLE 40 MG TABLET.DR PO SCH (07:30)
--- NOTE | 2021-11-21 08:00 | NUR ---
RN OPENING NOTE PATIENT RECEIVED IN BED, AO x 1. ABLE TO RESPONDS ALL STIMULI. IN NO ACUTE DISTRESS NOTED. RESPIRATORY EVEN AND UNLABORED ON ROOM AIR. SKIN IS WARM TO TOUCH, KEEP CLEAN/DRY. KEEP NPO FOR PEG SCHEDULED TODAY. ALSO KEPT ELEVATED HOB FOR ENSURE AIRWAY AND ASPIRATION PRECAUTION, AND LOWEST POSITION OF THE BED, S/R UP X 3, BED ALARM IS ON AT ALL THE TIMES. ALL SAFETY PRECAUTION APPLIED. CALL LIGHT WITHIN REACH, WILL CONTINUE TO MONITOR.
[2021-11-21] MEDS: ENTACAPONE 200 MG TABLET PO SCH (09:00)
[2021-11-21] MEDS: HEPARIN SODIUM, PORCINE 5000 UNITS/1 ML VIAL SQ SCH ×2 (09:00→22:27)
[2021-11-21] MEDS: FERROUS SULFATE (325 MG) 325 MG/TAB TABLET PO SCH (09:00)
[2021-11-21] MEDS: MEMANTINE HCL 5 MG TABLET PO SCH (09:00)
[2021-11-21] MEDS: POLYETHYLENE GLYCOL 3350 17 GM POWD.PACK PO SCH (09:00)
[2021-11-21] MEDS: DOCUSATE SODIUM LIQ 100 MG/10 ML UDC PO SCH (09:00)
[2021-11-21] MEDS: CARBIDOPA/LEVODOPA 25/100 MG 1 UDTAB PO SCH (09:00)
--- NOTE | 2021-11-21 09:16 | NUR ---
PATIENT UNABLE TO SWALLOWING MEDS, HELD ALL MEDS INCLUDE LOVENOX DUE TO SCHEDULED FOR PEG PROCEDURE TODAY.
--- NOTE | 2021-11-21 11:50 | NUR ---
PATIENT BACK FROM PEG PROCEDURE, VITAL SIGNS ARE ALL STABLE, AND DOCUMENTED IN INTERVENTION. NO ACTIVE BLEEDING OBSERVED ON NEW GASTRIC TUBE SITE, KEPT INTACT SKIN. WILL RESUME PREVIOUS MEDS AFTER 1500 INDICATED MD'S ORDERED. CALL LIGHT WITHIN REACH, WILL CONTINUE TO MONITOR.
[2021-11-21] MEDS ORDERED: ACETAMINOPHEN 650 MG/20.3 ML UDC PO PRN (13:00)
[2021-11-21] MEDS ORDERED: PHARMACY TO CHANGE PO MEDS TO GT/NG XX PRN (15:00)
[2021-11-21] MEDS: DOCUSATE SODIUM LIQ 100 MG/10 ML UDC GT SCH (17:11)
[2021-11-21] MEDS: CARBIDOPA/LEVODOPA 25/100 MG 1 UDTAB GT SCH (17:12)
[2021-11-21] MEDS: ENTACAPONE 200 MG TABLET GT SCH (17:12)
[2021-11-21] MEDS: MEMANTINE HCL 5 MG TABLET GT SCH (17:12)
--- NOTE | 2021-11-21 18:19 | NUR ---
RN CLOSE NOTE PATIENT IN BED. S/P GASTROSTOMY TUBE INSERTION, IN NO ACUTE DISTRESS OBSERVED. RESPIRATION EVEN AND UNLABORED ON ROOM AIR. SKIN IS WARM TO TOUCH KEEP CLEAN/DRY. PATIENT STARTED RESUME PREVIOUS MEDS AND TOLERATED. SPOKE WITH DIETARY/CEE THAT PATIENT WILL START TUBE FEEDING FROM TOMORROW AT 0600. KEPT ELEVATED HOB FOR ASPIRATION PRECAUTION AND ENSURE AIR WAY, ALSO LOWEST POSITION OF THE BED FOR SAFETY. CALL LIGHT WITHIN REACH, WILL ENDORSE TO MEDICAL RECORD TRANSCRIBER. NPO SIGN REPOSTED AT BED SIDE. Addendum: 11/21/21 at 1828 by STEPHANY SILVA RN ERROR
--- NOTE | 2021-11-21 18:29 | NUR ---
RN CLOSE NOTE PATIENT IN BED. S/P GASTROSTOMY TUBE INSERTION, IN NO ACUTE DISTRESS OBSERVED. RESPIRATION EVEN AND UNLABORED ON ROOM AIR. SKIN IS WARM TO TOUCH KEEP CLEAN/DRY. PATIENT STARTED RESUME PREVIOUS MEDS AND TOLERATED. SPOKE WITH DIETARY/CEE THAT PATIENT WILL START TUBE FEEDING FROM TOMORROW AT 0600. KEPT ELEVATED HOB FOR ASPIRATION PRECAUTION AND ENSURE AIR WAY, ALSO LOWEST POSITION OF THE BED FOR SAFETY. CALL LIGHT WITHIN REACH, WILL ENDORSE TO [employer] AND [employer].
--- NOTE | 2021-11-21 19:59 | NUR ---
MS/TELE/RN PATIENT IS AWAKE, PASSIVE AFFECT, NON VERBALLY RESPONSIVE, APPEARS COMFORTABLE, NO SIGNS OF DISTRESS NOTED, CALL LIGHT IN REACH, FALL PRECAUTIONS PER PROTOCOL IMPLEMENTED, WILL MONITOR.
[2021-11-21] MEDS: TAMSULOSIN 0.4 MG CAP.SR.24H GT SCH (22:25)
[2021-11-21] MEDS: DONEPEZIL 5 MG TABLET GT SCH (22:25)
[2021-11-22] MEDS: IV D5/0.45 NACL 1,000 ML IV PRN ×2 (05:49→21:44)
--- NOTE | 2021-11-22 06:04 | NUR ---
MS/TELE/RN PATIENT APPEARS SLEEPING AT THIS TIME, APPEARS COMFORTABLE, NO SIGNS OF DISTRESS NOTED, CALL LIGHT IN REACH, ALL NEEDS ATTENDED AT THIS [place], WILL CONTINUE TO MONITOR,.
--- NOTE | 2021-11-22 07:18 | NUR ---
MS RN OPENING NOTES PT IN BED SLEEPING BUT EASY TO WAKE, PATIENT IS ALERT/ ORIENTED X1. PT IS ON ROOM AIR TOLERATED WELL WITH NO SIGN SOB/DISTRESS NOTED. NO COMPLAIN OF PAIN/DISCOMFORT AT THIS TIME. WITH IV ACCESS RFA #18G IVF RUNNING D5 1/2 NS @ 80CC/HR RUNNING. WITH G-TUBE, WITH DRESSING DRY AND INTACT. CALL LIGHT WITHIN REACH. SAFETY MEASURE IN PLACE.BED LOCKED AND LOW POSITION.WILL CONTINUE TO MONITOR.
[2021-11-22 08:00] VITALS: BP 105/64
[2021-11-22] MEDS: DOCUSATE SODIUM LIQ 100 MG/10 ML UDC GT SCH ×2 (09:16→17:55)
[2021-11-22] MEDS: FERROUS SULFATE UDC 300 MG/5 ML UDC GT SCH (09:16)
[2021-11-22] MEDS: POLYETHYLENE GLYCOL 3350 17 GM POWD.PACK GT SCH (09:17)
[2021-11-22] MEDS: MEMANTINE HCL 5 MG TABLET GT SCH ×2 (09:17→17:56)
[2021-11-22] MEDS: ENTACAPONE 200 MG TABLET GT SCH ×2 (09:17→17:55)
[2021-11-22] MEDS: CARBIDOPA/LEVODOPA 25/100 MG 1 UDTAB GT SCH ×2 (09:17→17:56)
[2021-11-22] MEDS: HEPARIN SODIUM, PORCINE 5000 UNITS/1 ML VIAL SQ SCH ×2 (09:24→21:19)
[2021-11-22] MEDS: PANTOPRAZOLE 40 MG/PACK PACK GT SCH (09:28)
[2021-11-22] MEDS ORDERED: JEVITY 1.2 CAL 1,000 ML BOTTLE NG PRN (09:30)
[2021-11-22] MEDS: ACETAMINOPHEN 650 MG/20.3 ML UDC GT PRN ×2 (09:32→16:19)
--- NOTE | 2021-11-22 10:15 | NUR ---
MS RN NOTE PATIENT SEEN BY DR. RICE
[2021-11-22 16:00] VITALS: BP 168/110
--- NOTE | 2021-11-22 18:42 | NUR ---
MS RN CLOSING NOTES PATIENT IS ALERT/ ORIENTED X1. PT IS ON ROOM AIR TOLERATED WELL WITH NO SIGN SOB/DISTRESS NOTED. NO COMPLAIN OF PAIN/DISCOMFORT AT THIS TIME. WITH IV ACCESS RFA #18G PATENT AND INTACT. WITH G-TUBE, WITH JEVITY AT 45ML/HR, TOLERATED WELL. NO COMPLAIN OR SIGNS AND SYMTOMS OF DISCOMFORT NOTED. CALL LIGHT WITHIN REACH. SAFETY MEASURE IN PLACE.BED LOCKED AND LOW POSITION. ENDORSED TO NEXT SHIFT FOR CONTINUITY OF CARE.
--- NOTE | 2021-11-22 19:20 | NUR ---
MS/RN OPENING NOTE RECEIVED PATIENT RESTING IN BED. ALERT AND ORIENTED X 1, NON-VERBAL. NO S/SX OF PAIN NOTED. CONTINUES ON ROOM AIR WITH NO S/SX OF RESPIRATORY DISTRESS NOTED. IV ACCESS TO LEFT AC #20G INFILTRATED - WILL ATTEMPT IV PLACEMENT. CONTINUES ON TUBE FEED JEVITY 1.2 @ 45ML/HR WITH NO RESIDUAL NOTED. CALL LIGHT WITHIN REACH. ASPIRATION, FALL AND SAFETY PRECAUTIONS MAINTAINED. ALL NEEDS ATTENDED TO AT THIS TIME.
[2021-11-22 20:00] VITALS: BP 116/58
--- NOTE | 2021-11-22 21:00 | NUR ---
MS/RN NOTE REMOVED OLD IV FROM LEFT AC. PRESSURE DRESSING APPLIED. MINIMAL DRAINAGE NOTED. TIP OF CATHETER INTACT. NEW IV PLACED TO RIGHT HAND #24G WITH PATIENT TOLERATING WELL.
[2021-11-22] MEDS: DONEPEZIL 5 MG TABLET GT SCH (21:15)
[2021-11-22] MEDS: TAMSULOSIN 0.4 MG CAP.SR.24H GT SCH (21:15)
--- NOTE | 2021-11-23 06:20 | NUR ---
MS/RN CLOSING NOTE PATIENT CURRENTLY RESTING IN BED. ALERT AND ORIENTED X 1-2. DENIES PAIN AT THIS TIME. CONTINUES ON ROOM AIR WITH NO S/SX OF RESPIRATORY DISTRESS NOTED. IV ACCESS TO RIGHT HAND #24G INTACT AND PATENT. CONTINUES ON IVF D5 1/2 NS @ 80ML/HR. CONTINUES ON TUBE FEED JEVITY 1.2 @ 45ML/HR WITH NO RESIDUAL NOTED. CALL LIGHT WITHIN REACH. ASPIRATION, FALL AND SAFETY PRECAUTIONS MAINTAINED. ALL NEEDS ATTENDED TO AT THIS TIME. WILL ENDORSE PLAN OF CARE TO ONCOMING SHIFT RN.
--- NOTE | 2021-11-23 07:00 | NUR ---
MS RN OPENING NOTES PATIENT LAYING IN BED, A/O X 1-2. NO COMPLAINTS OF PAIN OR DISCOMFORT AT THIS TIME. TOLERATING WELL ON ROOM AIR WITH NO S/S RESPIRATORY DISTRESS OR SOB. R HAND # 24 G SL CLEAN, INTACT AND INFUSING 1/2 NS @ 80 ML/HR. JEVITY TUBE FEED 1.2 MONIQUE @ 45 ML/HR. SAFETY MEASURES IN PLACE: BED IN LOWEST LOCKED POSITION, SIDE RAILS UP X 2, CALL LIGHT WITHIN REACH. WILL CONTINUE TO MONITOR.
[2021-11-23 08:00] VITALS: BP 112/61
[2021-11-23] MEDS: PANTOPRAZOLE 40 MG/PACK PACK GT SCH (08:04)
[2021-11-23] MEDS: FERROUS SULFATE UDC 300 MG/5 ML UDC GT SCH (08:45)
[2021-11-23] MEDS: CARBIDOPA/LEVODOPA 25/100 MG 1 UDTAB GT SCH ×2 (08:46→18:03)
[2021-11-23] MEDS: MEMANTINE HCL 5 MG TABLET GT SCH ×2 (08:46→18:03)
[2021-11-23] MEDS: POLYETHYLENE GLYCOL 3350 17 GM POWD.PACK GT SCH (08:46)
[2021-11-23] MEDS: ENTACAPONE 200 MG TABLET GT SCH ×2 (08:46→18:03)
[2021-11-23] MEDS: DOCUSATE SODIUM LIQ 100 MG/10 ML UDC GT SCH ×2 (08:46→18:03)
[2021-11-23] MEDS: HEPARIN SODIUM, PORCINE 5000 UNITS/1 ML VIAL SQ SCH (08:50)
[2021-11-23] MEDS: IV D5/0.45 NACL 1,000 ML IV PRN (10:16)
[2021-11-23 13:00] LABS: BASOPHILS % (AUTO) 0.2 % (0.0-2.0); EOSINOPHILS % (AUTO) 0.1 % (0.0-6.0); HEMATOCRIT 38 % (39-51); HEMOGLOBIN 12.1 g/dL (13.5-17.5); LYMPHOCYTES # (AUTO) 1.2 K/uL (0.8-4.8); LYMPHOCYTES % (AUTO) 5.3 % (20.0-44.0); MEAN CORPUSCULAR HGB CONC 32 g/dl (31.0-36.0); MEAN CORPUSCULAR VOLUME 93 fL (80-96); MONOCYTES # (AUTO) 0.7 K/uL (0.1-1.30); NEUTROPHILS # (AUTO) 20.4 K/uL (1.8-8.9); NEUTROPHILS % (AUTO) 91.4 % (43.0-81.0); PLATELET COUNT (AUTO) 85 K/uL (150-450); RED BLOOD CELL COUNT(AUTO) 4.02 MIL/uL (4.5-6.0); WHITE BLOOD COUNT (AUTO) 22.3 K/uL (4.3-11.0)
--- NOTE | 2021-11-23 13:59 | NUR ---
stat lab work results reported to dr. Olvera, new orders received and carried out.
[2021-11-23] MEDS ORDERED: PIPERACILLIN /TAZOBACTAM 4.5 G in IV D5W 50 ML IV SCH (14:00)
[2021-11-23] MEDS: ZOSYN IVPB 3.375 G in IV D5W 50ml IV SCH ×2 (14:43→19:34)
[2021-11-23] MEDS ORDERED: VANCOMYCIN 1 GM in IV D5W 250 ML IV ONE (15:00)
[2021-11-23] MEDS: ACETAMINOPHEN 650 MG/20.3 ML UDC GT PRN (18:16)
--- NOTE | 2021-11-23 18:16 | NUR ---
MS RN NOTES PATIENT NOTED WITH FEVER OF 99.6 F. TYLENOL 650 MG PO ADMINISTERED ORDERED. WILL CONTINUE TO MONITOR FOR S/S FEVER.
--- NOTE | 2021-11-23 19:00 | NUR ---
MS LUCIANO CLOSING NOTES PATIENT LAYING IN BED, A/O X 2. NO COMPLAINTS OF PAIN OR DISCOMFORT AT THIS TIME. TOLERATING WELL ON ROOM AIR WITH NO S/S RESPIRATORY DISTRESS OR SOB. R HAND # 24 G SL CLEAN, INTACT AND FLUSHING WELL, L HAND # 22 G CLEAN, INTACT, AND FLUSHING WELL. JEVITY TUBE FEEDING IN PLACE 1.2 MONIQUE @ 45 ML/HR. ALL NEEDS MET. SAFETY MEASURES IN PLACE: BED IN LOWEST LOCKED POSITION, SIDE RAILS UP X 2, CALL LIGHT WITHIN REACH. WILL ENDORSE TO APPLICATIONS CONSULTANT FOR GIFTY. Addendum: 11/23/21 at 1934 by YOHANNES CISNEROS RN [facility]
--- NOTE | 2021-11-23 19:42 | NUR ---
MS RN OPENING NOTES RECEIVED PATIENT RESTING IN BED COMFORTABLE WITH HOB ELEVATED; PATIENT A/OX1, RESPONDS TO NAME; BREATHING EVEN AND UNLABORED; NO SOB NOTED; NO DISTRESS NOTED; R HAND # 24, L HAND #22, R UA #22, ALL IV SITES INTACT AND PATENT, FLUSHING WELL AND TOLERATING IVF WELL; GTUBE NOTED, RUNNING JEVITY @ 45ML/HR, TOLERATING GTUBE FEEDING WITH MINIMAL RESIDUALS NOTED; PATIENT HAS SLIGHT FEVER, PER AM SHIFT, TYLENOL ALREADY GIVEN, WILL CONT TO MONITOR; SAFETY PRECAUTIONS IMPLEMENTED; BED LOCKED IN LOW POSITION; SIDE RAILSX2, WILL CONT TO MONITOR AND CONT PLAN OF CARE
[2021-11-23 20:00] VITALS: BP 116/68
[2021-11-23] MEDS: TAMSULOSIN 0.4 MG CAP.SR.24H GT SCH (21:00)
[2021-11-23] MEDS: DONEPEZIL 5 MG TABLET GT SCH (21:00)
[2021-11-24] MEDS: ZOSYN IVPB 3.375 G in IV D5W 50ml IV SCH ×4 (00:19→17:46)
[2021-11-24] MEDS: JEVITY 1.2 CAL 1,000 ML BOTTLE GT PRN (02:49)
[2021-11-24 06:16] LABS: EOSINOPHILS % (AUTO) 0.1 % (0.0-6.0); HEMATOCRIT 33 % (39-51); HEMOGLOBIN 11.6 g/dL (13.5-17.5); LYMPHOCYTES # (AUTO) 0.7 K/uL (0.8-4.8); LYMPHOCYTES % (AUTO) 6.6 % (20.0-44.0); MEAN CORPUSCULAR HGB CONC 35 g/dl (31.0-36.0); MEAN CORPUSCULAR VOLUME 89 fL (80-96); MONOCYTES # (AUTO) 0.7 K/uL (0.1-1.30); MONOCYTES % (AUTO) 6.2 % (2.0-12.0); NEUTROPHILS # (AUTO) 9.5 K/uL (1.8-8.9); NEUTROPHILS % (AUTO) 87.1 % (43.0-81.0); PLATELET COUNT (AUTO) 79 K/uL (150-450); RED BLOOD CELL COUNT(AUTO) 3.74 MIL/uL (4.5-6.0); WHITE BLOOD COUNT (AUTO) 10.9 K/uL (4.3-11.0)
[2021-11-24 06:20] LABS: CREATININE 0.8 mg/dL (0.6-1.3)
--- NOTE | 2021-11-24 06:47 | NUR ---
MS RN CLOSINGNOTES PATIENT RESTING IN BED COMFORTABLE WITH HOB ELEVATED; PATIENT A/OX1, RESPONDS TO NAME AND VERBAL; BREATHING EVEN AND UNLABORED; NO SOB NOTED; NO DISTRESS NOTED; R HAND # 24, L HAND #22, R UA #22, ALL IV SITES INTACT AND PATENT, FLUSHING WELL AND TOLERATING IVF WELL; GTUBE NOTED, RUNNING JEVITY @ 45ML/HR, TOLERATING GTUBE FEEDING WITH MINIMAL RESIDUALS NOTED; ALL NEEDS RENDERED; SAFETY PRECAUTIONS IMPLEMENTED; BED LOCKED IN LOW POSITION; SIDE RAILSX2, WILL ENDORSE GIFTY TO ONCOMING SHIFT
--- NOTE | 2021-11-24 07:30 | NUR ---
RN OPENING NOTE- PT ASLEEP, EASILY AWAKENED. ORIENTED TO SELF. WITH HOB ELEVATED; BREATHING EVEN AND NON-LABORED; NO SOB NOTED; NO DISTRESS NOTED; R HAND # 24, L HAND #22, R UA #22, ALL IV SITES INTACT. GTUBE NOTED, RUNNING JEVITY @ 45ML/HR, TOLERATING GTUBE FEEDING; SAFETY PRECAUTIONS IMPLEMENTED; BED LOCKED IN LOW POSITION; SIDE RAILSX2. MONITOR / ASSIST
[2021-11-24] MEDS: PANTOPRAZOLE 40 MG/PACK PACK GT SCH (08:01)
[2021-11-24 08:38] VITALS: BP 119/76
[2021-11-24] MEDS: CARBIDOPA/LEVODOPA 25/100 MG 1 UDTAB GT SCH ×2 (09:04→16:21)
[2021-11-24] MEDS: FERROUS SULFATE UDC 300 MG/5 ML UDC GT SCH (09:04)
[2021-11-24] MEDS: DOCUSATE SODIUM LIQ 100 MG/10 ML UDC GT SCH ×2 (09:04→16:21)
[2021-11-24] MEDS: MEMANTINE HCL 5 MG TABLET GT SCH ×2 (09:05→16:21)
[2021-11-24] MEDS: POLYETHYLENE GLYCOL 3350 17 GM POWD.PACK GT SCH (09:05)
[2021-11-24] MEDS: ENTACAPONE 200 MG TABLET GT SCH ×2 (09:05→16:21)
[2021-11-24] MEDS: POTASSIUM CHLORIDE 20 MEQ POWDER PACKET NG SCH ×3 (10:57→12:51)
--- NOTE | 2021-11-24 13:00 | NUR ---
RN NOTE- PT W INCREASING CHEST CONGESTION. DR VALLE STOPPED D5 1/2 NS AND ORDERED LASIX 40 MG IVP X ONE DOSE
[2021-11-24] MEDS ORDERED: FUROSEMIDE 40 MG/4 ML VIAL IV STA (14:06)
[2021-11-24] MEDS ORDERED: VANCOMYCIN 0.75 GM in IV D5W 250 ML IV SCH (15:00)
[2021-11-24 16:15] VITALS: BP 132/76
--- NOTE | 2021-11-24 18:34 | NUR ---
RN CLOSING NOTE- PT ASLEEP. WITH HOB ELEVATED; BREATHING EVEN AND NON-LABORED; NO SOB NOTED; NO DISTRESS NOTED; R HAND # 24, L HAND #22, R UA #22, ALL IV SITES INTACT. GTUBE NOTED, RUNNING JEVITY @ 45ML/HR, TOLERATING GTUBE FEEDING; SAFETY PRECAUTIONS IMPLEMENTED; BED LOCKED IN LOW POSITION; SIDE RAILSX2. MONITOR / ASSIST
--- NOTE | 2021-11-24 19:10 | NUR ---
MS/RN OPENING NOTE RECEIVED PATIENT RESTING IN BED. ALERT AND ORIENTED TO NAME. DENIES PAIN AT THIS TIME. CONTINUES ON ROOM AIR WITH NO S/SX OF RESPIRATORY DISTRESS NOTED. IV ACCESS TO LEFT HAND #24G AND RIGHT UPPER ARM #22G BOTH INTACT, PATENT AND SALINE LOCKED. CONTINUES ON TUBE FEED JEVITY 1.2 @ 45ML/HR WITH NO RESIDUAL NOTED AT THIS TIME. CONTINUES ON IV ABX. CONTINUES WITH STRICT ASPIRATION PRECAUTIONS. CALL LIGHT WITHIN REACH. ASPIRATION, FALL AND SAFETY PRECAUTIONS MAINTAINED. ALL NEEDS ATTENDED TO AT THIS TIME.
[2021-11-24 20:00] VITALS: BP 103/72
[2021-11-24] MEDS: TAMSULOSIN 0.4 MG CAP.SR.24H GT SCH (21:51)
[2021-11-24] MEDS: DONEPEZIL 5 MG TABLET GT SCH (21:51)
[2021-11-25] MEDS: ZOSYN IVPB 3.375 G in IV D5W 50ml IV SCH ×3 (00:39→12:21)
[2021-11-25] MEDS: JEVITY 1.2 CAL 1,000 ML BOTTLE GT PRN (05:48)
--- NOTE | 2021-11-25 06:20 | NUR ---
MS/RN CLOSING NOTE PATIENT CURRENTLY RESTING IN BED. ALERT AND ORIENTED TO NAME. DENIES PAIN AT THIS TIME. CONTINUES ON ROOM AIR WITH NO S/SX OF RESPIRATORY DISTRESS NOTED. IV ACCESS TO LEFT HAND #24G AND RIGHT UPPER ARM #22G BOTH INTACT, PATENT AND SALINE LOCKED. CONTINUES ON TUBE FEED JEVITY 1.2 @ 45ML/HR WITH NO RESIDUAL NOTED AT THIS TIME. CONTINUES ON IV ABX. CONTINUES WITH STRICT ASPIRATION PRECAUTIONS. CALL LIGHT WITHIN REACH. ASPIRATION, FALL AND SAFETY PRECAUTIONS MAINTAINED. ALL NEEDS ATTENDED TO AT THIS TIME. WILL ENDORSE PLAN OF CARE TO ONCOMING SHIFT RN.
[2021-11-25 06:43] LABS: BASOPHILS % (AUTO) 0.1 % (0.0-2.0); EOSINOPHILS % (AUTO) 0.8 % (0.0-6.0); HEMATOCRIT 32 % (39-51); LYMPHOCYTES % (AUTO) 18.7 % (20.0-44.0); MEAN CORPUSCULAR HGB CONC 35 g/dl (31.0-36.0); MEAN CORPUSCULAR VOLUME 89 fL (80-96); MONOCYTES # (AUTO) 0.5 K/uL (0.1-1.30); MONOCYTES % (AUTO) 9.9 % (2.0-12.0); NEUTROPHILS # (AUTO) 3.8 K/uL (1.8-8.9); NEUTROPHILS % (AUTO) 70.5 % (43.0-81.0); PLATELET COUNT (AUTO) 95 K/uL (150-450); RED BLOOD CELL COUNT(AUTO) 3.56 MIL/uL (4.5-6.0); WHITE BLOOD COUNT (AUTO) 5.3 K/uL (4.3-11.0)
[2021-11-25 08:00] VITALS: BP 96/53
[2021-11-25 08:01] LABS: CARBON DIOXIDE 25 mmol/L (21-32); CHLORIDE 95 mmol/L (98-107); CREATININE 0.9 mg/dL (0.6-1.3); GLUCOSE 155 mg/dL (74-106); POTASSIUM 3.3 mmol/L (3.5-5.1); SODIUM SERUM 131 mmol/L (136-145); UREA NITROGEN, BLOOD 15 mg/dL (7-18)
--- NOTE | 2021-11-25 08:30 | NUR ---
received pt. in am vitals stable.tube feeding infusing.hob elevated.
[2021-11-25] MEDS: DOCUSATE SODIUM LIQ 100 MG/10 ML UDC GT SCH (09:15)
[2021-11-25] MEDS: POLYETHYLENE GLYCOL 3350 17 GM POWD.PACK GT SCH (09:15)
[2021-11-25] MEDS: FERROUS SULFATE UDC 300 MG/5 ML UDC GT SCH (09:15)
[2021-11-25] MEDS: CARBIDOPA/LEVODOPA 25/100 MG 1 UDTAB GT SCH (09:15)
[2021-11-25] MEDS: ENTACAPONE 200 MG TABLET GT SCH (09:15)
[2021-11-25] MEDS: MEMANTINE HCL 5 MG TABLET GT SCH (09:15)
[2021-11-25] MEDS: PANTOPRAZOLE 40 MG/PACK PACK GT SCH (09:15)
[2021-11-25] MEDS ORDERED: POTASSIUM CHLORIDE 20 MEQ POWDER PACKET NG SCH (09:30)
[2021-11-25 09:35] LABS: BAND % (MANUAL) 2 % (0.0-5.0); LYMPHOCYTES % (MANUAL) 17 % (16-48); MONOCYTES % (MANUAL) 9 % (0-11.0); NEUTROPHILS % (MANUAL) 72 (42-76)
--- NOTE | 2021-11-25 12:55 | NUR ---
FIGHTING NURSE WITH ATTEMPT TO DO DC PHOTOS.SO NOT DONE.
--- NOTE | 2021-11-25 13:00 | NUR ---
POTASSIUM REPLACEMENT GIVEN PER G-TUBE.
--- NOTE | 2021-11-25 13:00 | NUR ---
report called to gustavo at transferring facility.
--- NOTE | 2021-11-25 13:45 | NUR ---
dc info given to drivers.hep lock lt hand removed as well as lavonne midline removed.taken via ambulance to facility
== END 2021-11-25 13:45 | DRG 640 ==
LOC: ER 17:45 → MED 20:52
PROVIDERS: ADMIT Internal Medicine; ATTEND Internal Medicine
PROC: 0DH63UZ Insertion of Feeding Device into Stomach, Percutaneous Approach (ICD-10-PCS; principal; 2021-11-21)
DX: R62.7 Adult failure to thrive (principal); R53.2 Functional quadriplegia; E43 Unspecified severe protein-calorie malnutrition; R64 Cachexia; D68.59 Other primary thrombophilia; Z68.1 Body mass index [BMI] 19.9 or less, adult; D63.8 Anemia in other chronic diseases classified elsewhere; I25.10 Atherosclerotic heart disease of native coronary artery without angina pectoris; E88.09 Other disorders of plasma-protein metabolism, not elsewhere classified; F02.80 Dementia in other diseases classified elsewhere, unspecified severity, without behavioral disturbance, psychotic disturbance, mood disturbance, and anxiety; G20 Parkinson's disease; F41.9 Anxiety disorder, unspecified; F32.A Depression, unspecified; I10 Essential (primary) hypertension; R13.10 Dysphagia, unspecified; Z91.81 History of falling; Z20.822 Contact with and (suspected) exposure to COVID-19; M62.50 Muscle wasting and atrophy, not elsewhere classified, unspecified site; Z74.09 Other reduced mobility
CPT/HCPCS: 36415; 43246; 71045-TC; 80048-TC; 80053-TC; 83735-TC; 84100-TC; 85025-TC; 85730-TC; 87081-TC; 92526; 92611-TC; C9803; G0378; J0690; J1644; J1940; J2543; J2704; J3370; J3490; J7030; J7040; J7060

== ENCOUNTER 2021-11-27 13:17 | Emergency (ER) | payer MEDICARE, OTHER ==
[~2021-11-27] VITALS: Ht 157.5 cm; Wt 38.1 kg
[~2021-11-27 13:17] MED LIST changes: -AMIN30LI2 PO; -ASCO-352 PO; -BRIN8DRO2 EACHEYE; +CALC1TAB30 PO; -CALC500T52 PO; +CRAN3875 PO; +MAGN400O6 PO; -MELA5TAB PO; -MULT-447 PO; -OMEG1CAP PO; +PANT40TA2 PO
--- NOTE | 2021-11-27 13:30 | NUR ---
TO ER BED 1, [facility] [id number] From [facility] "G-Tube replacement", AAOX1, BREATHING EVEN AND NON LABORED, CONNECTED TO MONITOR.
[2021-11-27] MEDS ORDERED: DIATR MEGLU/DIATRIZOATE SODIUM 30 ML BOTTLE (GASTROGRAPHIN) ONE (15:44)
--- NOTE | 2021-11-27 15:49 | NUR ---
ROAST MASTER AT BEDSIDE
--- NOTE | 2021-11-27 17:09 | NUR ---
[facility] CALLED FOR TRANSPORT ETA 60 MINS PER HORTENCIA.
--- NOTE | 2021-11-27 18:15 | NUR ---
REPORT GIVEN TO MELLO OF [facility]
[2021-11-27 18:32] VITALS: BP 137/75
== END 2021-11-27 18:33 | disposition home or self-care (01) ==
LOC: ER 13:24
DX: K94.23 Gastrostomy malfunction (principal); G20 Parkinson's disease; F02.80 Dementia in other diseases classified elsewhere, unspecified severity, without behavioral disturbance, psychotic disturbance, mood disturbance, and anxiety; I10 Essential (primary) hypertension; I25.10 Atherosclerotic heart disease of native coronary artery without angina pectoris; K21.9 Gastro-esophageal reflux disease without esophagitis; D64.9 Anemia, unspecified; F32.A Depression, unspecified; Z79.899 Other long term (current) drug therapy
CPT/HCPCS: 43762; 74018; 99285; Q9963

== ENCOUNTER 2021-11-29 20:35 | Emergency (ER) | payer MEDICARE, OTHER ==
[~2021-11-29] VITALS: Ht 157.5 cm; Wt 38.1 kg
--- NOTE | 2021-11-29 20:40 | NUR ---
[facility] L[facility] FOR GTUBE MALFUNTION. 20FR FR[address] IN PLACE ON ARRIVAL.
--- NOTE | 2021-11-29 20:51 | NUR ---
F/C 20FR INSERTED IN [place] FOR PATENCY. DR. PATTERSON AWARE
[2021-11-29] MEDS ORDERED: DIATR MEGLU/DIATRIZOATE SODIUM 30 ML BOTTLE (GASTROGRAPHIN) ONE (21:07)
--- NOTE | 2021-11-29 21:08 | NUR ---
AUDIO VISUAL SPECIALIST AT PT'S BEDSIDE
--- NOTE | 2021-11-29 21:35 | NUR ---
[facility] CALLED FOR BLS TRANSPORT. ETA 60 MINUTES.
--- NOTE | 2021-11-29 21:38 | NUR ---
REPORT GIVEN TO MELLO WOLF FOR CONTINUATION OF CARE.
--- NOTE | 2021-11-29 22:10 | NUR ---
TYRELL FROM [facility] WITH UPDATE OF BLS TRANSPORT ETA 60-90 MINUTES.
[2021-11-30 00:08] VITALS: BP 118/72
--- NOTE | 2021-11-30 00:08 | NUR ---
[facility] AT BEDSIDE FOR TRANSPORT TO [facility].
== END 2021-11-30 00:09 | disposition home or self-care (01) ==
LOC: ER 20:40
DX: K94.23 Gastrostomy malfunction (principal); G20 Parkinson's disease; F02.80 Dementia in other diseases classified elsewhere, unspecified severity, without behavioral disturbance, psychotic disturbance, mood disturbance, and anxiety; I10 Essential (primary) hypertension; I25.10 Atherosclerotic heart disease of native coronary artery without angina pectoris; D64.9 Anemia, unspecified; K21.9 Gastro-esophageal reflux disease without esophagitis; F32.A Depression, unspecified; Z79.899 Other long term (current) drug therapy
CPT/HCPCS: 43762; 74018; 99284; Q9963

== ENCOUNTER 2022-02-07 03:04 | Inpatient (IN) | payer MEDICARE, OTHER ==
[~2022-02-07] VITALS: Ht 167.6 cm; Wt 65.8 kg
--- NOTE | 2022-02-07 03:12 | NUR ---
BIBRA39 FROM SN[facility] FOR O2 DESATURATION IN THE MID 80'S [id number]. ON NRB SATTING 96% AT 15L. TEMP 102.3 TACHY 139. PATIENT A&0X1. BROUGHT IN BY STRETCHER. IN BED 08 ON MONITOR AND POX. AWAITING MD HARRISON.
--- NOTE | 2022-02-07 03:20 | NUR ---
BLOOD AND CULTURES COLLECTED AND SENTT O LAB
[2022-02-07] MEDS ORDERED: methylPREDNISolone SOD SUCC 125 MG/2ML VIAL IV ONE (03:30)
[2022-02-07] MEDS ORDERED: ALBUTEROL FS 2.5 MG/3 ML VIAL.NEB NEB ONE (03:30)
[2022-02-07] MEDS ORDERED: ACETAMINOPHEN 650 MG/SUPP.RECT RC ONE ×2 (03:30→03:31)
[2022-02-07] MEDS ORDERED: VANCOMYCIN 1 GM in IV D5W 250 ML IV ONE (03:30)
[2022-02-07] MEDS ORDERED: PIPERACILLIN /TAZOBACTAM 3.375 G in IV D5W 50 ML IV ONE (03:30)
--- NOTE | 2022-02-07 03:30 | NUR ---
COVID SWAB DONE AND SENT TO LAB
[2022-02-07] MEDS ORDERED: methylPREDNISolone SOD SUCC 125 MG/2ML VIAL ONE (03:31)
[2022-02-07] MEDS ORDERED: VANCOMYCIN 1 GM VIAL ONE (03:31)
[2022-02-07] MEDS ORDERED: PIPERACILLIN /TAZOBACTAM 3.375 G VIAL IV ONE (03:31)
--- NOTE | 2022-02-07 03:31 | NUR ---
FRANCO PLACED, NO URINE OUTPUT AT THIS TIME, WILL CHECK LATER.
--- NOTE | 2022-02-07 03:31 | NUR ---
EMT AT BEDSIDE FOR EKG
[2022-02-07] MEDS ORDERED: ALBUTEROL FS 2.5 MG/3 ML VIAL.NEB ONE (03:33)
--- NOTE | 2022-02-07 03:33 | NUR ---
RT AT PT'S BEDSIDE FOR BREATHING TX AND SUCTION
--- NOTE | 2022-02-07 03:39 | NUR ---
URINE COLLECTED AND SENT TO LAB
[2022-02-07 04:12] LABS: ABG PCO2 30.9 mmHg (35.0-45.0); ABG PH 7.434 (7.350-7.450); ABG PO2 76.3 mmHg (75.0-100.0); COHb 0.6 % (0.5-1.5); MetHb 0.4 % (0.0-1.5); O2Hb 94.3 % (94.0-97.0); SITE, ABG Right Radial; VENT MODE, BG Nasal cannula
[2022-02-07 05:26] LABS: CALCIUM, SERUM 8.9 mg/dL (8.5-10.1); CARBON DIOXIDE 25 mmol/L (21-32); CHLORIDE 102 mmol/L (98-107); CREATININE 0.9 mg/dL (0.6-1.3); GLUCOSE 161 mg/dL (74-106); POTASSIUM 3.8 mmol/L (3.5-5.1); SODIUM SERUM 138 mmol/L (136-145); UREA NITROGEN, BLOOD 28 mg/dL (7-18)
[2022-02-07 05:27] LABS: ALANINE AMINOTRANSFERASE 30 U/L (12-78); ALKALINE PHOSPHATASE 114 U/L (46-116); ASPARTATE AMINOTRANSFERASE 27 U/L (15-37); BILIRUBIN,DIRECT 0.2 mg/dL (0.0-0.2); BILIRUBIN,TOTAL 0.7 mg/dL (0.2-1.0)
[2022-02-07 05:28] LABS: ALBUMIN 3.5 g/dL (3.4-5.0); TOTAL PROTEIN, SERUM 8.3 g/dL (6.4-8.2)
[2022-02-07 05:39] LABS: COLOR,URINE YELLOW (YELLOW); PROTEIN,URINE 100 mg/dl (NEGATIVE)
[2022-02-07 05:40] LABS: BILIRUBIN,URINE NEGATIVE (NEGATIVE); LEUKOCYTE ESTERASE ,URINE NEGATIVE (NEGATIVE); NITRITE, URINE NEGATIVE (NEGATIVE); UGLUCOSE NEGATIVE (NEGATIVE)
[2022-02-07 05:42] LABS: BACTERIA,URINE Rare /HPF (None Seen); RBC,URINE 21-50 /HPF (0-2); SQUAMOUS EPITHELIAL CELL,UR Few /HPF (None Seen)
[2022-02-07 05:49] LABS: WHITE BLOOD COUNT (AUTO) 18.7 K/uL (4.3-11.0)
[2022-02-07 05:50] LABS: BASOPHILS % (AUTO) 0.3 % (0.0-2.0); HEMATOCRIT 41 % (39-51); HEMOGLOBIN 13.6 g/dL (13.5-17.5); LYMPHOCYTES # (AUTO) 0.4 K/uL (0.8-4.8); LYMPHOCYTES % (AUTO) 2.1 % (20.0-44.0); MEAN CORPUSCULAR HGB CONC 33 g/dl (31.0-36.0); MEAN CORPUSCULAR VOLUME 95 fL (80-96); MONOCYTES # (AUTO) 0.8 K/uL (0.1-1.30); MONOCYTES % (AUTO) 4.2 % (2.0-12.0); NEUTROPHILS # (AUTO) 17.5 K/uL (1.8-8.9); NEUTROPHILS % (AUTO) 93.4 % (43.0-81.0); PLATELET COUNT (AUTO) 151 K/uL (150-450); RED BLOOD CELL COUNT(AUTO) 4.37 MIL/uL (4.5-6.0)
[2022-02-07] MEDS ORDERED: HYDROCODONE/APAP 5/325MG TABLET PO PRN (06:00)
[2022-02-07] MEDS ORDERED: Z GUARD REMEDY 4 OZ OINT TP PRN (06:00)
[2022-02-07] MEDS ORDERED: IV NS 0.9% 1,000 ML IV PRN (06:00)
[2022-02-07] MEDS ORDERED: ZOLPIDEM TARTRATE 5 MG TABLET PO PRN (06:00)
[2022-02-07] MEDS ORDERED: ONDANSETRON HCL/PF 4 MG/2 ML VIAL IVP PRN (06:00)
[2022-02-07] MEDS ORDERED: MAG HYDROX/AL HYDROX/SIMETH 30 ML UDC PO PRN (06:00)
[2022-02-07] MEDS ORDERED: ACETAMINOPHEN 325 MG TABLET PO PRN ×2 (06:00)
[2022-02-07] MEDS ORDERED: MAGNESIUM HYDROXIDE 30 ML UDC PO PRN (06:00)
--- NOTE | 2022-02-07 06:28 | NUR ---
PATIENT GOING TO CT
--- NOTE | 2022-02-07 08:30 | NUR ---
Awaiting Admission spoke to [facility] "No beds right now. I will let you know"
[2022-02-07] MEDS ORDERED: Medication Not On Formulary EA (Cran/Vitc/Mannose/Inulin/Brom (Uti-Stat Liquid) 3,875 MG PO SCH (09:00)
[2022-02-07] MEDS ORDERED: Medication Not On Formulary EA (Cranberry Extract (Cranberry) 425 MG) PO SCH (09:00)
--- NOTE | 2022-02-07 09:13 | NUR ---
FOLLOWED UP FOR BED WILL LET US KNOW.
--- NOTE | 2022-02-07 09:38 | NUR ---
GOT BED 309 READY AFTER 1030
[2022-02-07] MEDS ORDERED: FERROUS SULFATE (325 MG) 325 MG/TAB TABLET PO SCH (11:00)
[2022-02-07] MEDS ORDERED: CALCIUM CARB 250MG /VITAMIN D 1 UDTAB PO SCH (11:00)
[2022-02-07] MEDS ORDERED: CLOPIDOGREL BISULFATE 75 MG TABLET PO SCH (11:00)
[2022-02-07] MEDS ORDERED: PIPERACILLIN /TAZOBACTAM 3.375 G in IV D5W 50 ML IV SCH (11:00)
--- NOTE | 2022-02-07 11:00 | NUR ---
REPORT GIVEN TO JAVIER WOLF OF TELE UNIT
[2022-02-07] MEDS ORDERED: EPINEPHRINE (1:10,000) SYRINGE 1 MG/10 ML DISP.SYRIN IVP ONE (12:39)
--- NOTE | 2022-02-07 13:00 | NUR ---
RN NOTE 1222- STAFF NOTIFIED ON OVERHEAD MONITOR BY PRIMARY SPECIAL EDUCATOR THAT PATIENT WAS IN DISTRESS VIA TELE MONITOR. CALLED TO ROOM STAT. PATIENT OBSERVED TO BE UNRESPONSIVE. RAPID RESPONSE TEAM IMMEDIATELY NOTIFIED AND ARRIVED; CODE BLUE STATUS/ CPR INITIATED. BP 101/75 HR 84 BS 164. FAMILY NOTIFIED BY HOSPITAL DIRECTOR, TRISTAN. PATIENT INTUBATED BY DR. CRAWFORD, HOWEVER FAMILY DECIDED TO NOT FOLLOW THROUGH WITH RESUSCITATION OR INTUBATION EFFORTS. 1240- CODE BLUE/CPR STOPPED AND PATIENT EXPIRATION PRONOUNCED.
[2022-02-07] MEDS ORDERED: VANCOMYCIN 0.75 GM in IV D5W 250 ML IV SCH (16:00)
[2022-02-07] MEDS ORDERED: MEMANTINE HCL 5 MG TABLET PO SCH (17:00)
[2022-02-07] MEDS ORDERED: ENTACAPONE 200 MG TABLET PO SCH (17:00)
[2022-02-07] MEDS ORDERED: DOCUSATE SODIUM 100 MG CAPSULE PO SCH (17:00)
[2022-02-07] MEDS ORDERED: ACETAMINOPHEN ES 500 MG TABLET PO SCH (17:00)
[2022-02-07] MEDS ORDERED: CARBIDOPA/LEVODOPA 25/100 MG 1 UDTAB PO SCH (17:00)
[2022-02-07 17:12] VITALS: BP 101/75
[2022-02-07 17:22] VITALS: BP 101/75
[2022-02-07] MEDS ORDERED: MAGNESIUM HYDROXIDE 30 ML UDC PO SCH (22:00)
[2022-02-07] MEDS ORDERED: DONEPEZIL 5 MG TABLET PO SCH (22:00)
[2022-02-07] MEDS ORDERED: CHOLECALCIFEROL 1,000 UNIT TABLET (VIT D3) PO SCH (22:00)
[2022-02-07] MEDS ORDERED: TAMSULOSIN 0.4 MG CAP.SR.24H PO SCH (22:00)
== END 2022-02-07 12:40 | DRG 871 ==
LOC: ER 03:09 → TELE 09:41
PROVIDERS: ADMIT Internal Medicine; ATTEND Internal Medicine
PROC: 0BH17EZ Insertion of Endotracheal Airway into Trachea, Via Natural or Artificial Opening (ICD-10-PCS; principal; 2022-02-07)
PROC: 5A2204Z Restoration of Cardiac Rhythm, Single (ICD-10-PCS; 2022-02-07)
DX: A41.9 Sepsis, unspecified organism (principal); G93.41 Metabolic encephalopathy; J96.01 Acute respiratory failure with hypoxia; E87.2 Acidosis; R65.20 Severe sepsis without septic shock; Z20.822 Contact with and (suspected) exposure to COVID-19; F02.80 Dementia in other diseases classified elsewhere, unspecified severity, without behavioral disturbance, psychotic disturbance, mood disturbance, and anxiety; D63.8 Anemia in other chronic diseases classified elsewhere; G20 Parkinson's disease; I10 Essential (primary) hypertension; I25.10 Atherosclerotic heart disease of native coronary artery without angina pectoris; K21.9 Gastro-esophageal reflux disease without esophagitis; N40.0 Benign prostatic hyperplasia without lower urinary tract symptoms; M62.50 Muscle wasting and atrophy, not elsewhere classified, unspecified site; R62.7 Adult failure to thrive; M62.40 Contracture of muscle, unspecified site; Z91.81 History of falling; M19.90 Unspecified osteoarthritis, unspecified site; Z79.02 Long term (current) use of antithrombotics/antiplatelets; Z79.899 Other long term (current) drug therapy
CPT/HCPCS: 31720; 36415; 36600; 71045-TC; 71250-TC; 80048-TC; 80076-TC; 81001; 82803-TC; 82962-TC; 83605-TC; 83880; 84484-TC; 85025-TC; 85378-TC; 85730-TC; 87040-TC; 87081-TC; C9803; G0378; J0171; J2543; J2930; J3370; J7060